=== PATIENT | female | born 1990 | race African-American/Black ===

== ENCOUNTER 2017-06-09 20:00 | Emergency (ER) | payer BC ==
[~2017-06-09] VITALS: Ht 165.1 cm; Wt 70.3 kg
[~2017-06-09 20:00] MED LIST: ALBUTEROL INHAL17 GM IH; APAP500 PO; AZITHROMYCIN 2250 MG PO; BIRTH CONTROL; COLACE 100 MG100 MG PO; DARVOCET-N 1001 EACH PO; DERMOPLAST SPRA56 ML; FLAGYL500 MG PO; HYDROCORTISONE30 G9 RE; IBUPROFEN 800800 M1 PO; IROSPAN 24/6 T1 EACH PO; LANOLIN56 GM; MACROBID 100 M100 M1 PO; NOHOMEMEDICATIONS; PRENATAL PO; PYRIDIUM200 MG PO; TUCKS MEDICATE1 EAC1 RECTAL; ZOFRAN ODT4 MG PO
[2017-06-09 20:15] LABS: URINE BILIRUBIN NEGATIVE (Negative); URINE BLOOD NEGATIVE (Negative); URINE COLOR YELLOW; URINE GLUCOSE-RANDOM* NEGATIVE (Negative); URINE KETONES TRACE (Negative); URINE NITRITE NEGATIVE (Negative); URINE PROTEIN (DIPSTICK) NEGATIVE (Negative); URINE SPECIFIC GRAVITY 1.025 (1.003-1.035); URINE UROBILINOGEN 0.2 E.U./dl (0.2-1.0)
[2017-06-09 22:04] VITALS: BP 124/88
[2017-06-10 16:08] LABS: CHLAMYDIA TRACHOMATIS-PCR Negative (Negative); NEISSERIA GONORRHEA-PCR Negative (Negative)
== END 2017-06-09 22:05 | disposition home or self-care (01) ==
LOC: ER 20:00
PROVIDERS: Physician Assistant
DX: N72 Inflammatory disease of cervix uteri (principal); R30.0 Dysuria; F10.99 Alcohol use, unspecified with unspecified alcohol-induced disorder; Z20.2 Contact with and (suspected) exposure to infections with a predominantly sexual mode of transmission; Z88.0 Allergy status to penicillin

== ENCOUNTER 2017-06-22 15:58 | Emergency (ER) | payer BC ==
[~2017-06-22] VITALS: Ht 165.1 cm; Wt 88.5 kg
[2017-06-22] MEDS ORDERED: HYDROCODONE-IB1 EAC3 PO (16:50)
[2017-06-22] MEDS ORDERED: PERIDEX 0.12%473 M1 PO (16:52)
[2017-06-22 17:18] LABS: HEMATOCRIT 42.4 % (37.0-47.0); HEMOGLOBIN 14.1 gm/dL (12.0-15.0); MCH 27.5 pg (26.0-34.0); MCHC 33.2 g/dL (28.0-37.0); MCV 82.8 fL (80.0-100.0); PLATELET COUNT 264 thou/uL (150-400); RBC 5.12 mil/uL (4.20-5.00); RDW 14.1 % (10.5-14.5); WBC 7.5 thou/uL (4.0-11.0)
[2017-06-22 17:19] LABS: MANUAL DIFF YES
[2017-06-22 17:34] LABS: CALCIUM 9.3 mg/dL (8.5-10.1); CREATININE 0.9 mg/dL (0.6-1.0); POTASSIUM 4.1 mmol/L (3.5-5.1)
[2017-06-22 17:36] LABS: ABSOLUTE NEUTROPHILS 1.7 thou/uL (1.4-8.2); TOTAL CELL COUNT 100
[2017-06-22] MEDS ORDERED: PERCOCET PO (18:33)
[2017-06-22] MEDS ORDERED: NYSTATIN100000 UNI PO (18:39)
[2017-06-22 19:10] VITALS: BP 105/58
== END 2017-06-22 19:12 | disposition home or self-care (01) ==
LOC: ER 15:58
PROVIDERS: Nurse Practitioner
DX: K13.79 Other lesions of oral mucosa (principal); G89.18 Other acute postprocedural pain; B37.9 Candidiasis, unspecified

== ENCOUNTER 2017-12-30 21:59 | Emergency (ER) | payer BC ==
[~2017-12-30] VITALS: Ht 165.1 cm; Wt 93.0 kg
--- NOTE | ~2017-12-30 | EKG ---
[address] [address] ELECTROCARDIOGRAM REPORT Name: BERKLEY ERAZOHAWN Room #: [facility] [id number] Admission: 12/30/17 Attend Phys: Discharge: 12/31/17 Date of : [birth year] Report #: [id number] THIS REPORT FOR: //name// [facility] ED Test Date: 2017-12-30 Test Time: 22:56:29 Pat Name: BERKLEY ERAZO Department: Room: Gender: F Academic Dean: Viviane PASTRANA : 1990 Requested By: Maurice Massey Order Number: [id number] MD: Isaias Bowman Measurements Intervals [place] Rate: 118 P: 55 GA: 154 QRS: 55 QRSD: 71 T: 17 QT: 305 QTc: 428 Interpretive Statements Sinus tachycardia Baseline wander in lead(s) V5 Compared to ECG 11/29/2014 06:26:41 Heart rate has increased Electronically Signed On 12-31-2017 7:59:08 CDT by Isaias Bowman [email or web address] <ELECTRONICALLY SIGNED> By: Isaias Bowman MD, [facility] 12/31/17 0759 55 55 Isaias Bowman MD, [facility] /EPI
[~2017-12-30 21:59] MED LIST changes: +HYDROCODONE-IB1 EAC3 PO; +NYSTATIN100000 UNI PO; +PERCOCET PO; +PERIDEX 0.12%473 M1 PO
[2017-12-30 22:31] LABS: URINE BILIRUBIN NEGATIVE (Negative); URINE BLOOD NEGATIVE (Negative); URINE CLARITY CLEAR; URINE COLOR YELLOW; URINE GLUCOSE-RANDOM* NEGATIVE (Negative); URINE KETONES NEGATIVE (Negative); URINE LEUKOCYTES-REFLEX NEGATIVE (Negative); URINE NITRITE-REFLEX NEGATIVE (Negative); URINE PROTEIN (DIPSTICK) NEGATIVE (Negative); URINE SPECIFIC GRAVITY 1.015 (1.005-1.035); URINE UROBILINOGEN 0.2 E.U./dl (0.2-1.0)
[2017-12-30 22:39] LABS: AMP/METHAMP Negative (Negative); BARBITURATES Negative (Negative); BENZODIAZEPINES Negative (Negative); COCAINE Negative (Negative); METHADONE Negative (Negative); OPIATES Negative (Negative); PCP Negative (Negative)
[2017-12-30 22:43] LABS: ABSOLUTE NEUTROPHILS 8.6 thou/uL (1.4-8.2); EOSINOPHILS 1.6 % (0.0-3.0); HEMATOCRIT 36.2 % (37.0-47.0); HEMOGLOBIN 12.2 gm/dL (12.0-15.0); LYMPHOCYTES 26.7 % (24.0-44.0); MCH 27.8 pg (26.0-34.0); MCHC 33.7 g/dL (28.0-37.0); MCV 82.5 fL (80.0-100.0); MONOCYTES 9.4 % (1.0-8.0); PLATELET COUNT 306 thou/uL (150-400); POLYS 61.3 % (36.0-66.0); RBC 4.38 mil/uL (4.20-5.00); RDW 14.4 % (10.5-14.5); WBC 14.1 thou/uL (4.0-11.0)
[2017-12-30] MEDS ORDERED: NORTRIPTYLINE H25 M3 GT (22:45)
[2017-12-30] MEDS ORDERED: SUMATRIPTAN SU100 MG PO (22:45)
[2017-12-30] MEDS ORDERED: SERTRALINE HCL100 MG PO (22:45)
[2017-12-30 22:53] LABS: ANION GAP 11 mmol/L (7-16); BUN 11 mg/dL (7-18); CALCIUM 9.3 mg/dL (8.5-10.1); CHLORIDE 102 mmol/L (98-107); CO2 25 mmol/L (21-32); POTASSIUM 4.1 mmol/L (3.5-5.1); SODIUM 138 mmol/L (136-145)
[2017-12-30 22:58] LABS: APTT 25.2 Seconds (24.5-32.8); PROTIME 9.3 Seconds (9.3-11.4)
[2017-12-30 23:02] LABS: ALBUMIN 3.5 g/dL (3.4-5.0); LIPASE 146 U/L (73-393); MAGNESIUM 2.2 mg/dL (1.8-2.4); SGOT 27 U/L (15-37); SGPT 46 U/L (30-65); TOTAL BILIRUBIN 0.3 mg/dL (<0.1-1.0); TOTAL PROTEIN 7.5 g/dL (6.4-8.2); TROPONIN-I < 0.04 ng/mL (<0.06)
[2017-12-30 23:14] LABS: GLUCOSE 118 mg/dL (74-106)
[2017-12-30] MEDS ORDERED: ZOFRAN ODT8 MG PO (23:59)
[2017-12-30] MEDS ORDERED: PEPCID20 MG PO (23:59)
[2017-12-31 00:35] VITALS: BP 114/75
== END 2017-12-31 00:38 | disposition home or self-care (01) ==
LOC: ER 21:59
PROVIDERS: Emergency Medicine
DX: K31.89 Other diseases of stomach and duodenum (principal); K59.00 Constipation, unspecified; N92.6 Irregular menstruation, unspecified; G40.909 Epilepsy, unspecified, not intractable, without status epilepticus; Z88.0 Allergy status to penicillin

== ENCOUNTER 2019-12-14 19:26 | Emergency (ER) | payer OTHER ==
[~2019-12-14] VITALS: Ht 165.1 cm; Wt 113.4 kg
[~2019-12-14 19:26] MED LIST changes: +NORTRIPTYLINE H25 M3 GT; +PEPCID20 MG PO; +SERTRALINE HCL100 MG PO; +SUMATRIPTAN SU100 MG PO; +ZOFRAN ODT8 MG PO
[2019-12-14 20:11] LABS: URINE BILIRUBIN NEGATIVE (Negative); URINE BLOOD NEGATIVE (Negative); URINE CLARITY CLEAR; URINE COLOR YELLOW; URINE GLUCOSE-RANDOM* NEGATIVE (Negative); URINE KETONES NEGATIVE (Negative); URINE LEUKOCYTES-REFLEX NEGATIVE (Negative); URINE NITRITE-REFLEX NEGATIVE (Negative); URINE PROTEIN (DIPSTICK) NEGATIVE (Negative); URINE SPECIFIC GRAVITY >= 1.030 (1.005-1.035); URINE UROBILINOGEN 0.2 E.U./dl (0.2-1.0)
[2019-12-14] MEDS ORDERED: FLEXERIL PO (20:46)
[2019-12-14 21:07] VITALS: BP 131/97
== END 2019-12-14 21:03 | disposition home or self-care (01) ==
LOC: ER 19:26
PROVIDERS: Physician Assistant
DX: N89.8 Other specified noninflammatory disorders of vagina (principal); G43.909 Migraine, unspecified, not intractable, without status migrainosus; M79.7 Fibromyalgia; F41.9 Anxiety disorder, unspecified; Z88.0 Allergy status to penicillin

== ENCOUNTER 2020-03-16 16:01 | Emergency (ER) | payer OTHER ==
[~2020-03-16] VITALS: Ht 165.1 cm; Wt 111.1 kg
[~2020-03-16 16:01] MED LIST changes: +FLEXERIL PO
[2020-03-16 16:16] LABS: URINE BILIRUBIN NEGATIVE (Negative); URINE BLOOD NEGATIVE (Negative); URINE CLARITY CLEAR; URINE COLOR YELLOW; URINE GLUCOSE-RANDOM* NEGATIVE (Negative); URINE KETONES NEGATIVE (Negative); URINE LEUKOCYTES-REFLEX TRACE (Negative); URINE NITRITE-REFLEX NEGATIVE (Negative); URINE PROTEIN (DIPSTICK) NEGATIVE (Negative); URINE SPECIFIC GRAVITY >= 1.030 (1.005-1.035); URINE UROBILINOGEN 0.2 E.U./dl (0.2-1.0)
[2020-03-16 18:08] VITALS: BP 129/82
== END 2020-03-16 18:14 | disposition home or self-care (01) ==
LOC: ER 16:01
PROVIDERS: Emergency Medicine
DX: N76.0 Acute vaginitis (principal); E11.9 Type 2 diabetes mellitus without complications; G40.909 Epilepsy, unspecified, not intractable, without status epilepticus; M79.7 Fibromyalgia; F41.9 Anxiety disorder, unspecified; Z79.899 Other long term (current) drug therapy; Z88.0 Allergy status to penicillin

== ENCOUNTER 2020-09-20 17:29 | Emergency (ER) | payer BC ==
[~2020-09-20] VITALS: Ht 165.1 cm; Wt 116.6 kg
[2020-09-20 18:04] LABS: ABSOLUTE NEUTROPHILS 6.9 thou/uL (1.4-8.2); BASOPHILS 0.9 % (0.0-2.0); EOSINOPHILS 1.9 % (0.0-3.0); HEMATOCRIT 33.8 % (37.0-47.0); HEMOGLOBIN 11.2 gm/dL (12.0-15.0); LYMPHOCYTES 31.6 % (24.0-44.0); MCH 26.1 pg (26.0-34.0); MCV 79.1 fL (80.0-100.0); MONOCYTES 7.4 % (1.0-8.0); PLATELET COUNT 367 thou/uL (150-400); POLYS 58.2 % (36.0-66.0); RBC 4.27 mil/uL (4.20-5.00); RDW 16.6 % (10.5-14.5); WBC 11.9 thou/uL (4.0-11.0)
[2020-09-20 18:15] LABS: URINE BILIRUBIN NEGATIVE (Negative); URINE BLOOD NEGATIVE (Negative); URINE CLARITY CLEAR; URINE COLOR YELLOW; URINE GLUCOSE-RANDOM* NEGATIVE (Negative); URINE KETONES NEGATIVE (Negative); URINE LEUKOCYTES-REFLEX NEGATIVE (Negative); URINE NITRITE-REFLEX NEGATIVE (Negative); URINE PROTEIN (DIPSTICK) NEGATIVE (Negative); URINE SPECIFIC GRAVITY >= 1.030 (1.005-1.035); URINE UROBILINOGEN 0.2 E.U./dl (0.2-1.0)
[2020-09-20 18:27] LABS: ANION GAP 12 mmol/L (7-16); BUN 9 mg/dL (7-18); CHLORIDE 103 mmol/L (98-107); CO2 22 mmol/L (21-32); CREATININE 0.9 mg/dL (0.6-1.0); GLUCOSE 172 mg/dL (74-106); POTASSIUM 3.7 mmol/L (3.5-5.1); SODIUM 137 mmol/L (136-145)
[2020-09-20 18:36] LABS: ALBUMIN 3.6 g/dL (3.4-5.0); SGOT 16 U/L (15-37); SGPT 26 U/L (14-59); TOTAL BILIRUBIN 0.4 mg/dL (0.2-1.0); TOTAL PROTEIN 7.6 g/dL (6.4-8.2); TROPONIN-I <0.06 ng/mL (<0.06)
[2020-09-20] MEDS ORDERED: MOBIC7.5 MG PO (22:17)
[2020-09-20] MEDS ORDERED: INDOMETHACIN 2525 MG PO (22:26)
[2020-09-20] MEDS ORDERED: HYDROCODON-ACE1 EA11 PO (22:36)
[2020-09-20 22:53] VITALS: BP 145/91
--- NOTE | 2020-09-21 07:39 | EKG ---
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: LENA : 1990 Requested By: Eliazar Dalton Order Number: [id number] MD: Isaias Bowman Measurements Intervals [place] Rate: 123 P: 38 [place]: 148 QRS: 45 QRSD: 77 T: -12 QT: 299 QTc: 428 Interpretive Statements Sinus tachycardia Borderline T abnormalities, diffuse leads Compared to ECG 12/30/2017 22:56:29 T-wave abnormality now present Electronically Signed On 09-21-2020 7:39:04 COMMUNITY OUTREACH DIRECTOR by Isaias Bowman [email or web address] <ELECTRONICALLY SIGNED> By: Isaias Bowman MD, [facility] 09/21/20 0739 [id number] 1738 Isaias Bowman MD, FACC /EPI
== END 2020-09-20 22:54 | disposition home or self-care (01) ==
LOC: ER 17:29
PROVIDERS: Emergency Medicine
DX: R07.89 Other chest pain (principal); R06.02 Shortness of breath; R10.13 Epigastric pain; M54.9 Dorsalgia, unspecified; G40.909 Epilepsy, unspecified, not intractable, without status epilepticus; M79.7 Fibromyalgia; F41.9 Anxiety disorder, unspecified; E78.5 Hyperlipidemia, unspecified; Z79.899 Other long term (current) drug therapy; Z88.0 Allergy status to penicillin

== ENCOUNTER 2020-10-20 10:09 | Emergency (ER) | payer BC ==
[~2020-10-20] VITALS: Ht 162.6 cm; Wt 113.4 kg
[~2020-10-20 10:09] MED LIST changes: +HYDROCODON-ACE1 EA11 PO; +INDOMETHACIN 2525 MG PO; +MOBIC7.5 MG PO
[2020-10-20 11:07] LABS: ABSOLUTE NEUTROPHILS 12.9 thou/uL (1.4-8.2); BASOPHILS 1.3 % (0.0-2.0); EOSINOPHILS 1.2 % (0.0-3.0); HEMATOCRIT 39.2 % (37.0-47.0); HEMOGLOBIN 12.3 gm/dL (12.0-15.0); LYMPHOCYTES 22.2 % (24.0-44.0); MCH 24.9 pg (26.0-34.0); MCHC 31.5 g/dL (28.0-37.0); PLATELET COUNT 359 thou/uL (150-400); POLYS 70.3 % (36.0-66.0); RBC 4.96 mil/uL (4.20-5.00); RDW 16.5 % (10.5-14.5); WBC 18.4 thou/uL (4.0-11.0)
[2020-10-20 11:16] LABS: ANION GAP 13 mmol/L (7-16); BUN 9 mg/dL (7-18); CALCIUM 9.2 mg/dL (8.5-10.1); CHLORIDE 103 mmol/L (98-107); CO2 23 mmol/L (21-32); CREATININE 1.1 mg/dL (0.6-1.0); GLUCOSE 130 mg/dL (74-106); POTASSIUM 4.2 mmol/L (3.5-5.1); SODIUM 139 mmol/L (136-145)
[2020-10-20] MEDS ORDERED: ATORVASTATIN CA20 MG PO (11:18)
[2020-10-20] MEDS ORDERED: METFORMIN HCL500 M1 PO (11:19)
[2020-10-20 11:27] LABS: AMYLASE 51 U/L (25-115); DIRECT BILIRUBIN < 0.1 mg/dL (<0.1-0.2); LIPASE 157 U/L (73-393); SGOT 19 U/L (15-37); SGPT 35 U/L (14-59); TOTAL BILIRUBIN 0.3 mg/dL (0.2-1.0); TOTAL PROTEIN 8.4 g/dL (6.4-8.2); TROPONIN-I <0.06 ng/mL (<0.06)
[2020-10-20 13:15] LABS: URINE BILIRUBIN NEGATIVE (Negative); URINE BLOOD TRACE (Negative); URINE CLARITY CLEAR; URINE COLOR YELLOW; URINE GLUCOSE-RANDOM* NEGATIVE (Negative); URINE KETONES NEGATIVE (Negative); URINE LEUKOCYTES-REFLEX TRACE (Negative); URINE NITRITE-REFLEX NEGATIVE (Negative); URINE PROTEIN (DIPSTICK) NEGATIVE (Negative); URINE SPECIFIC GRAVITY >= 1.030 (1.005-1.035); URINE UROBILINOGEN 0.2 E.U./dl (0.2-1.0)
[2020-10-20] MEDS ORDERED: ZOFRAN ODT4 MG PO (13:40)
[2020-10-20] MEDS ORDERED: AMBIEN 5 MG TABL5 MG PO (13:40)
[2020-10-20] MEDS ORDERED: ULTRAM 50MG TAB50 MG PO (13:40)
[2020-10-20 13:50] VITALS: BP 129/58
--- NOTE | 2020-10-20 15:32 | EKG ---
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: CARMEN : 1990 Requested By: Eliazar Dalton Order Number: [id number] MD: Italo Florian Measurements Intervals [place] Rate: 112 P: 47 VT: 135 QRS: 40 QRSD: 72 T: -5 QT: 319 QTc: 436 Interpretive Statements Sinus tachycardia Borderline T abnormalities, inferior leads Compared to ECG 09/20/2020 17:38:20 No significant changes Electronically Signed On 10-20-2020 15:31:52 GRAIN ORIGINATION SPECIALIST by Italo Florian [email or web address] <ELECTRONICALLY SIGNED> By: Italo Florian MD, [facility] 10/20/20 1531 1126 1126 Italo Florian MD, FACC /EPI
== END 2020-10-20 13:50 | disposition home or self-care (01) ==
LOC: ER 10:09
PROVIDERS: Emergency Medicine
DX: G47.00 Insomnia, unspecified (principal); R07.9 Chest pain, unspecified; E86.0 Dehydration; R11.2 Nausea with vomiting, unspecified; D72.829 Elevated white blood cell count, unspecified; E78.5 Hyperlipidemia, unspecified; Z79.899 Other long term (current) drug therapy; Z88.0 Allergy status to penicillin

== ENCOUNTER 2020-10-21 17:32 | Emergency (ER) | payer BC ==
[~2020-10-21] VITALS: Ht 162.6 cm; Wt 113.4 kg
[~2020-10-21 17:32] MED LIST changes: +AMBIEN 5 MG TABL5 MG PO; +ATORVASTATIN CA20 MG PO; +METFORMIN HCL500 M1 PO; +ULTRAM 50MG TAB50 MG PO
[2020-10-21 17:45] VITALS: BP 142/105
--- NOTE | 2020-10-23 07:25 | EKG ---
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 : 1990 Requested By: Luke Patten Order Number: [id number] MD: Italo Florian Measurements Intervals [place] Rate: 101 P: 39 OR: 140 QRS: 30 QRSD: 75 T: -3 QT: 324 QTc: 420 Interpretive Statements Sinus tachycardia Borderline T abnormalities, inferior leads Compared to ECG 10/20/2020 11:26:22 No significant changes Electronically Signed On 10-23-2020 7:25:24 CERTIFIED OPHTHALMIC SURGICAL ASSISTANT by Italo Florian [email or web address] <ELECTRONICALLY SIGNED> By: Italo Florian MD, [facility] 10/23/20 0725 1740 1740 Italo Florian MD, FACC /EPI
== END 2020-10-21 18:33 | disposition home or self-care (01) ==
LOC: ER 17:32
DX: R51.9 Headache, unspecified (principal); E78.5 Hyperlipidemia, unspecified; Z79.899 Other long term (current) drug therapy; Z88.0 Allergy status to penicillin